=== PATIENT | female | born 1955 | race Asian ===

== ENCOUNTER → 2020-07-06 06:50 | Outpatient (CLI) | payer MEDICARE, BC, OTHER, SELFPAY ==
[2020-07-06 22:35] LABS: SARS-CoV-2 RNA PCR Negative
== END ==
PROVIDERS: PCP Family Medicine; Visit Provider Physician Assistant
DX: Z20.822 Contact with and (suspected) exposure to COVID-19 (principal); R05 Cough
CPT/HCPCS: C9803; U0003; U0005

== ENCOUNTER → 2020-09-29 14:36 | Outpatient (CLI) | payer MEDICARE, OTHER, SELFPAY ==
--- NOTE | ~2020-09-29 | MM_ITS ---
EXAMINATION: MM screening linda BI w ct HISTORY: Screening TECHNIQUE: Craniocaudal and mediolateral oblique 3-D tomosynthesis images were obtained and synthetic 2-D images were generated. CAD analysis was submitted and interpreted. COMPARISON: Comparison to multiple prior studies sequentially, with oldest reviewed study dated 02/25. BREAST PARENCHYMAL COMPOSITION: The breasts are heterogeneously dense, which may obscure small masses . FINDINGS: There is no evidence of suspicious mass, calcification, or architectural distortion to sugg est malignancy in either breast. There has been no suspicious interval change. IMPRESSION: 1. No mammographic evidence of malignancy. 2. Recommend routine screening mammography in one year. BI-RADS Category 1: Negative Reviewed, dictated and finalized at location A.
== END ==
PROVIDERS: PCP Family Medicine; Visit Provider Nurse Practitioner Obstetrics & Gynecology
DX: Z12.31 Encounter for screening mammogram for malignant neoplasm of breast (principal)
CPT/HCPCS: 77063; 77067

== ENCOUNTER → 2020-09-29 14:40 | Outpatient (CLI) | payer MEDICARE, OTHER, SELFPAY ==
--- NOTE | ~2020-09-29 | XR_ITS ---
EXAMINATION: XR ribs BI 3V w CXR 2V DATE: 09/29/2020 15:41 INDICATION: Pleurodynia. TECHNIQUE: Frontal and lateral views of the chest and 3 views of the right ribs and 3 views of the le ft ribs ribs were obtained. COMPARISON: None. FINDINGS: CHEST TWO VIEWS: The chest demonstrates clear lungs without pneumonia, pleural effusion, or pneumotho rax. The heart size is normal. BILATERAL RIBS: There is no rib fracture. IMPRESSION: 1. No rib fracture. Reviewed, dictated and finalized at location A. IMPRESSION: 1. No rib fracture.
== END ==
PROVIDERS: PCP Family Medicine; Visit Provider Physician Assistant
DX: R07.81 Pleurodynia (principal)
CPT/HCPCS: 71046; 71110

== ENCOUNTER → 2020-10-18 12:17 | Outpatient (CLI) | payer MEDICARE, OTHER, SELFPAY ==
--- NOTE | ~2020-10-18 | DEXA_ITS ---
Bone Density Report Name: Margarita Reyes Age: 65 Sex: Female Ethnicity: Date of : 1955 Indication: osteopenia; postmenopausal Referring Provider: Naye, Saumya Singer Study: Bone densitometry was performed. Exam Date: October 18, 2020 Accession number: [id number] Bone Density: Region BMD T-score Z-score Classification AP Spine (L1-L4) 0.837 -1.9 -0.1 Osteopenia Femoral Neck (Left) 0.648 -1.8 -0.3 Osteopenia Total Hip (Left) 0.748 -1.6 -0.3 Osteopenia Femoral Neck (Right) 0.645 -1.8 -0.3 Osteopenia Total Hip (Right) 0.786 -1.3 0.0 Osteopenia Total Hip Mean 0.767 -1.5 -0.2 Osteopenia World Health Organization criteria for BMD impression classify patients as: Normal (T-score at or above -1.0), Osteopenia (T-score between -1.0 and -2.5), or Osteoporosis (T-score at or below -2.5). 10-year Fracture Risk(1): Major Osteoporotic Fracture 5.5% Hip Fracture 0.8% Reported Risk Factors: [place] (), Neck BMD=0.645, BMI=24.1 (1) FRAX(R) Version 3.08. Fracture probability calculated for an untreated patient. Fracture probability may be lower if the patient has received treatment. Previous Exams: Region Exam Age BMD T-score BMD Change BMD Change Date g/cm2 vs Baseline vs Previous AP Spine(L1-L4) 10/18/2020 65 0.837 -1.9 -0.032* -0.037* 01/10/2009 53 0.874 -1.6 0.005 0.025* 12/15/2007 52 0.849 -1.8 -0.019 -0.019 11/26/2005 50 0.868 -1.6 Total Hip(Left) 10/18/2020 65 0.748 -1.6 -0.191* -0.045* 01/10/2009 53 0.794 -1.2 -0.145* 0.021 12/15/2007 52 0.773 -1.4 -0.166* -0.166* 11/26/2005 50 0.939 0.0 Total Hip(Right) 10/18/2020 65 0.786 -1.3 -0.138* -0.039* 01/10/2009 53 0.825 -1.0 -0.100* 0.048* 12/15/2007 52 0.777 -1.4 -0.148* -0.148* 11/26/2005 50 0.925 -0.1 *Denotes significance at 95% confidence level, LSC for AP Spine = 0.022 g/cm2, LSC for Total Hip = 0.027 g/cm2 Clinical Information Provided by Patient: Has used the following medications: Vitamin D Patient maximum height was 60 Menopause Age: 49 No regular weight bearing exercise Does not regularly consume dairy products Drinks caffeinated beverages Onset of menses at age 15 Number of children 3 Impression: The patient has low bone mass, based on the Total Spine T-s
== END ==
PROVIDERS: Visit Provider Nurse Practitioner Obstetrics & Gynecology
DX: Z78.0 Asymptomatic menopausal state (principal); M85.89 Other specified disorders of bone density and structure, multiple sites
CPT/HCPCS: 77080

== ENCOUNTER 2021-01-16 13:41 | Emergency (ER) | payer MEDICARE, OTHER, SELFPAY ==
--- NOTE | ~2021-01-16 | XR_ITS ---
Consultation XR DATE: 01/16/2021 INDICATION: Cough TECHNIQUE: 2 views COMPARISON: None FINDINGS: Normal heart size. No hilar or mediastinal enlargement. There is mild patchy infiltrate or atelectasis in the lower lung zones, left greater than right. No pleural effusion or pulmonary vascular congestion or pneumothorax. Diffuse osteopenia. IMPRESSION: Patchy lower lung infiltrate and/atelectasis, left greater than right Reviewed, dictated and finalized at Location A. Reviewed, dictated and finalized at location A. IMPRESSION: Patchy lower lung infiltrate and/atelectasis, left greater than rig ht
[2021-01-16 13:48] VITALS: BP 157/91; PULSE 114; RESP 18; TEMP 36.6; O2SAT 96
[2021-01-16 15:26] VITALS: BP 144/84; PULSE 99; RESP 16; TEMP 37.2; O2SAT 99
[2021-01-16 16:39] LABS: Basophils Absolute Auto 0.1 K/mm3 (0.0-0.1); Basophils Percent Auto 0.4 % (0.2-1.2); Eosinophils Absolute Auto 0.1 K/mm3 (0-0.3); Eosinophils Percent Auto 0.8 % (0-4.4); Hematocrit 41.2 % (37.0-47.0); Hemoglobin 13.1 g/dL (12.0-15.0); Immature Granulocyte Percent A 0.6 % (0-0.5); Lymphocytes Absolute Auto 1.92 K/mm3 (0.9-3.2); Mean Corpuscular HGB Conc 31.8 g/dl (32-36); Mean Platelet Volume 9.6 fl (7.4-10.4); Monocytes Absolute Auto 1.1 K/mm3 (0.1-0.6); Monocytes Percent Auto 6.2 % (2.6-8.5); Neutrophils Absolute Auto 14.1 K/mm3 (1.3-6.7); Platelet Count Result 388 k/mm3 (150-375); Red Blood Count 4.68 M/mm3 (4.2-5.4); Red Cell Distribution Width 12.3 % (11.5-14.5); White Blood Count 17.4 K/mm3 (4.5-10.0)
[2021-01-16 17:08] LABS: Alanine Aminotransferase 43 U/L (4-35); Albumin Level 4.7 g/dL (3.5-5.1); Alkaline Phosphatase 159 U/L (38-126); Anion Gap 13 mmol/L (8-16); Aspartate Amino Transferase 34 U/L (14-36); Bilirubin,Total 0.6 mg/dL (0.2-1.3); Blood Urea Nitrogen 9 mg/dL (7-17); Calcium 9.4 mg/dL (8.4-10.2); Carbon Dioxide 27 mmol/L (22-30); Chloride 98 mmol/L (98-107); Estimated CRCL calculation 57 ml/min; Estimated Glomerular Filt Rate > 60; Glucose 146 mg/dL (65-110); Potassium 4.3 mmol/L (3.4-5.0); Sodium 138 mmol/L (137-145)
--- NOTE | 2021-01-16 18:10 | ED.GENADULT ---
HPI - General Adult General Chief complaint: Upper Respiratory Infection Stated complaint: SENT FROM [facility] FOR PNX, DEHYDRATION, -covid Time Seen by Provider: 01/16/21 16:14 Source: patient and RN notes reviewed History of Present Illness HPI narrative: Patient is a 65 y/o female complaining of cough for about 10 days. She is coughing up some yellowish phlegm. There is no alleviating or exacerbating factor. She has no SOB or chest pain. She had some fever a few days ago, but no fever today. She was seen at urgent care today. She had COVID test, which was negative and Xray at urgent care reportedly showed pneumonia. She is sent here for further evaluation. Related Data Allergies Allergy/AdvReac Type Severity Reaction Status Date / Time AVACODO Allergy Unknown FACE Uncoded 09/29/20 09:43 SWELLING NKDA Allergy Unknown unk Uncoded 09/29/20 09:43 Review of Systems Constitutional: Constitutional: Denies chills, Reports fever(s), Denies headache(s) and Denies weakness Eyes: Eyes: Denies blurry vision ENT: Denies headache(s) and Denies neck pain Cardiovascular: Cardiovascular: Denies chest pain and Denies dyspnea Respiratory: Respiratory: Reports cough and Denies dyspnea Gastrointestinal: Gastrointestinal: Denies abdominal pain, Denies diarrhea, Denies nausea and Denies vomiting Genitourinary: Genitourinary: Denies hematuria and Denies dysuria Musculoskeletal: Musculoskeletal: Denies back pain and Denies neck pain Neurologic: Denies headache(s) and Denies weakness PMFSH Past Medical History Medical History Wellness examination Family History Family History Mother Diabetes mellitus Social History Social History Smoking status: Never smoker Alcohol intake: never Substance use: never Gender identity (if verbalized by the patient): Female Exam Const: General: no acute distress and well developed Orientation/consciousness: oriented to person, oriented to place, oriented to time and patient oriented x3 HENMT: Head: normocephalic Ears: external ears normal General nose exam: Normal external nose present Eyes: General: appearance normal, both eyes and all related structures Conjunctivae: conjunctivae normal Neck: Neck: normal visual inspection and full ROM Chest: Chest palpation & inspection: normal inspection of the chest and no tenderness Resp: Effort & Inspection: normal respiratory effort Auscultation: clear to auscultation bilaterally Cardio: Rate: regular rate Rhythm: regular rhythm GI: GI Palp: No abdominal tenderness and Yes Soft to palpation Skin: General skin exam: normal color and turgor normal Neuro: General: oriented to person, oriented to place, oriented to time and patient oriented x3 Cognition (Neuro): normal cognition Extrem: General: normal to inspection, full ROM and no pedal edema Psych: Appearance: grossly normal Mental Status: mental status grossly normal Affect: normal affect Course Vital Signs Vital signs: Vital Signs Temperature 36.6 C 01/16/21 13:48 Pulse Rate 114 H 01/16/21 13:48 Respiratory Rate 18 01/16/21 13:48 Blood Pressure 157/91 H 01/16/21 13:48 Pulse Oximetry 96 01/16/21 13:48 Temperature 37.2 C 01/16/21 15:26 Pulse Rate 100 01/16/21 18:22 Respiratory Rate 16 01/16/21 18:22 Blood Pressure 138/84 01/16/21 18:22 Pulse Oximetry 95 01/16/21 18:22 Medical Decision Making Vital Signs Vital Signs: Vital Signs Temperature 36.6 C 01/16/21 13:48 Pulse Rate 114 H 01/16/21 13:48 Respiratory Rate 18 01/16/21 13:48 Blood Pressure 157/91 H 01/16/21 13:48 Pulse Oximetry 96 01/16/21 13:48 Temperature 37.2 C 01/16/21 15:26 Pulse Rate 100 01/16/21 18:22 Respiratory Rate 16 01/16/21 18:22 Blood Pressure 138/84 01/16/21 18:22 Pulse Oxime
[2021-01-16 18:22] VITALS: BP 138/84; PULSE 100; RESP 16; O2SAT 95
== END 2021-01-16 18:24 | disposition home or self-care (01) ==
PROVIDERS: Emergency Provider Emergency Medicine; PCP Family Medicine
DX: J18.9 Pneumonia, unspecified organism (principal)
CPT/HCPCS: 36415; 80053; 85025; 99199; 99283

== ENCOUNTER 2021-05-11 01:56 | Day surgery (SDC) | payer MEDICARE, OTHER, SELFPAY ==
[2021-04-28 13:24] VITALS: BMI 23.4
--- NOTE | 2021-05-11 09:54 | WPDANESEPPF ---
Anes - Initial Pre Proc Eval Procedure: Operation Date: 05/11/21 12:30 Proposed Procedures p Screening Colonoscopy - Mayco Caceres MD Date/Time: 05/11/21 09:54 Surgeon: Mayco Caceres MD Pre Op Diagnosis: hx of colon polyps Patient Data Age: 65 Gender: F Height: 1.52 m Weight: 54.5 kg Allergies Allergy/AdvReac Type Severity Reaction Status Date / Time AVACODO Allergy Unknown FACE Uncoded 05/11/21 10:41 SWELLING Home Medications Medication Instructions Recorded Confirmed Type metformin 500 mg tablet 1,000 mg PO BID #360 tablet 03/13/21 05/11/21 Rx atorvastatin 20 mg tablet 20 mg PO DAILY #90 tablet 03/14/21 05/11/21 Rx cholecalciferol (vitamin D3) 50 mcg PO DAILY 04/28/21 05/11/21 History famotidine 40 mg PO HS 04/28/21 05/11/21 History Patient hx anesthesia problems: none Family hx anesthesia problems: none Results Review: All pre-operative results and documents have been reviewed as part of the pre-operative evaluation. FORMERLY [facility], [facility] Past Medical History Medical History (Updated 05/11/21 @ 09:54 by Kurt Landry DO) Depression Hyperlipidemia Type 2 diabetes mellitus without complication, without long-term current use of insulin Wellness examination Family History Family History Mother Diabetes mellitus Social History Social History Alcohol intake: never Substance use: never Living arrangements: with family Gender identity (if verbalized by the patient): Female Spiritual care concerns: No Anes - Eval Final PreProcedure Day of Procedure 05/11/21 09:54 Patient weight: normal Heart: regular rate and rhythm Lungs: clear to auscultation and normal air movement Airway: Mallampati scale class II Neurological: alert and oriented Last oral intake: >/= 8 hours ASA classification: III Emergent: no Anesthetic plan: proceed Anesthesia type and monitoring: general GIVS and standard monitoring Results Review: All pre-operative results and documents have been reviewed as part of the pre-operative evaluation. Informed Consent: The patient's anesthetic plan and its attendant risks and benefits were discussed with the patient/family/POA. Questions were solicited and answers provided to the satisfaction of the patient/family/POA.
[2021-05-11 10:43] VITALS: BP 150/72; PULSE 72; RESP 16; TEMP 36.7; O2SAT 100; BMI 23.0
[2021-05-11] MEDS: LACTATED RINGERS 1,000 ML 150 ML IV CONT (10:59)
[2021-05-11 11:02] LABS: Glucose Point of Care 126 mg/dl (65-105)
--- NOTE | 2021-05-11 11:09 | WPDGICN ---
Assessment and Plan Assessment and plan (1) History of colon polyps: Code(s): Z86.010 - Personal history of colonic polyps Status: Acute Assessment and Plan: Patient has a history of adenomatous colon polyp removed from the colon in 2007. Plan is for surveillance colonoscopy at present. Further recommendations will be given after endoscopy. GI Consult Note Consult date/time: 05/11/21 11:09 HPI: Margarita Reyes is a 65 year old female Presents for screening colonoscopy. Patient has a history of colon polyps in 2007 an adenoma was removed by Dr. Santana. Hyperplastic polyp was identified in 2012. Patient reports that her current weight appetite and bowel movements are normal. She denies abdominal pain. She has had no bleeding. Family history is noncontributory. Review of Systems Review of Systems: All systems reviewed & are unremarkable except as noted in HPI and below [facility] Past Medical History Medical History (Updated 05/11/21 @ 11:10 by Mayco Caceres MD) Depression Hyperlipidemia Type 2 diabetes mellitus without complication, without long-term current use of insulin Wellness examination Family History Family History Mother Diabetes mellitus Social History Social History Alcohol intake: never Substance use: never Living arrangements: with family Gender identity (if verbalized by the patient): Female Spiritual care concerns: No Meds Home Medications and Allergies Home Medications Medication Instructions Recorded Confirmed Type metformin 500 mg tablet 1,000 mg PO BID #360 tablet 03/13/21 05/11/21 Rx atorvastatin 20 mg tablet 20 mg PO DAILY #90 tablet 03/14/21 05/11/21 Rx cholecalciferol (vitamin D3) 50 mcg PO DAILY 04/28/21 05/11/21 History famotidine 40 mg PO HS 04/28/21 05/11/21 History Allergies Allergy/AdvReac Type Severity Reaction Status Date / Time AVACODO Allergy Unknown FACE Uncoded 05/11/21 10:41 SWELLING Vital Signs Vital Signs - 24 hr 05/11/21 10:43 Temperature 98.1 F Pulse Rate 72 Respiratory Rate 16 Blood Pressure 150/72 H Pulse Oximetry 100 Exam Narrative: Fit physical exam reveals patient to be alert. Vital signs stable. HEENT exam is unremarkable. Patient is anicteric. Lungs are clear to auscultation and percussion. Heart is without murmur or extra sounds. Abdominal exam bowel sounds are present soft nontender with no organomegaly. Digital external rectal exam unremarkable.
[2021-05-11 11:56] VITALS: BP 141/73; PULSE 78; RESP 19; O2SAT 98
[2021-05-11 12:06] VITALS: BP 139/68; PULSE 75; RESP 17; O2SAT 97
[2021-05-11 12:16] VITALS: BP 143/77; PULSE 74; RESP 22; O2SAT 99
== END 2021-05-11 12:30 | disposition home or self-care (01) ==
PROVIDERS: PCP Family Medicine; Visit Provider Internal Medicine Gastroenterology
PROC: 0DJD8ZZ Inspection of Lower Intestinal Tract, Via Natural or Artificial Opening Endoscopic (ICD-10-PCS; CPT 45378; principal; 2021-05-11 12:30)
DX: Z12.11 Encounter for screening for malignant neoplasm of colon (principal); K64.8 Other hemorrhoids; K57.30 Diverticulosis of large intestine without perforation or abscess without bleeding; Z86.010 Personal history of colon polyps; E11.9 Type 2 diabetes mellitus without complications; E78.5 Hyperlipidemia, unspecified; F32.9 Major depressive disorder, single episode, unspecified; Z79.84 Long term (current) use of oral hypoglycemic drugs
CPT/HCPCS: G0105; 82948; J2704; J7120

== ENCOUNTER → 2021-10-17 10:08 | Outpatient (CLI) | payer MEDICARE, OTHER, SELFPAY ==
--- NOTE | ~2021-10-17 | XR_ITS ---
XR knee RT 3V 10/17/2021 10:27 Indication: Right knee pain Procedure: 3 views right knee Comparison: No prior studies for comparison. Findings: No fracture, subluxation or dislocation. Prominent tibial tuberosity. No fracture or trauma tic malalignment. No significant joint effusion. There is mild osteoarthritis of the lateral facet of the patellofemoral compartment. Impression: 1: Mild patellofemoral compartment osteoarthritis. Reviewed, dictated and finalized at location A. Impression: 1: Mild patellofemoral compartment osteoarthritis.
== END ==
PROVIDERS: PCP Family Medicine; Visit Provider Family Medicine
DX: M25.561 Pain in right knee (principal); M17.11 Unilateral primary osteoarthritis, right knee
CPT/HCPCS: 73562

== ENCOUNTER → 2021-12-18 11:40 | Outpatient (CLI) | payer MEDICARE, OTHER, SELFPAY ==
--- NOTE | ~2021-12-18 | MM_ITS ---
EXAMINATION: MM screening linda BI w ct HISTORY: Screening mammogram TECHNIQUE: Craniocaudal and mediolateral oblique 3-D tomosynthesis images were obtained and synthetic 2-D images were generated. CAD analysis was submitted and interpreted. COMPARISON: 09/29/2020, 06/10/2019, 04/23/2018 bilateral screening mammogram examinations BREAST PARENCHYMAL COMPOSITION: The breasts are heterogeneously dense, which may obscure small masses . FINDINGS: There is no evidence of suspicious mass, calcification, or architectural distortion to sugg est malignancy in either breast. There has been no suspicious interval change. IMPRESSION: 1. No mammographic evidence of malignancy. 2. Recommend routine screening mammography in one year. BI-RADS Category 1: Negative Reviewed, dictated and finalized at location A.
== END ==
PROVIDERS: PCP Family Medicine; Visit Provider Family Medicine
DX: Z12.31 Encounter for screening mammogram for malignant neoplasm of breast (principal)
CPT/HCPCS: 77063; 77067

== ENCOUNTER 2023-10-01 11:09 | Outpatient (CLI) | payer MEDICARE, OTHER, SELFPAY ==
--- NOTE | ~2023-10-01 | MM_ITS ---
EXAMINATION: MM screening linda BI w ct HISTORY: Screening mammogram TECHNIQUE: Craniocaudal and mediolateral oblique 3-D tomosynthesis images were obtained and synthetic 2-D images were generated. CAD analysis was submitted and interpreted. COMPARISON: 12/18/2021, 09/29/2020 bilateral screening mammogram examinations BREAST PARENCHYMAL COMPOSITION: The breasts are heterogeneously dense, which may obscure small masses . FINDINGS: There is no evidence of suspicious mass, calcification, or architectural distortion to sugg est malignancy in either breast. There has been no suspicious interval change. IMPRESSION: 1. No mammographic evidence of malignancy. 2. Recommend routine screening mammography in one year. BI-RADS Category 1: Negative Reviewed, dictated and finalized at location B.
== END 2023-10-01 11:10 ==
LOC: MICIMG 11:11
PROVIDERS: PCP Family Medicine; Visit Provider Family Medicine
DX: Z12.31 Encounter for screening mammogram for malignant neoplasm of breast (principal)
CPT/HCPCS: 77063; 77067

== ENCOUNTER 2023-10-07 08:35 | Outpatient (CLI) | payer MEDICARE, OTHER, SELFPAY ==
--- NOTE | ~2023-10-07 | DEXA_ITS ---
Bone Density Report Name: DONNELL STRATTON Age: 68 Sex: Female Ethnicity: Date of : 1955 Indication: osteopenia; postmenopausal Referring Provider: Domo Rao Study: Bone densitometry was performed. Exam Date: October 07, 2023 Accession number: [id number] Bone Density: Region BMD T-score Z-score Classification AP Spine (L1-L4) 0.840 -1.9 0.1 Osteopenia Femoral Neck (Left) 0.633 -1.9 -0.2 Osteopenia Total Hip (Left) 0.750 -1.6 -0.2 Osteopenia Femoral Neck (Right) 0.644 -1.8 -0.1 Osteopenia Total Hip (Right) 0.791 -1.2 0.2 Osteopenia Total Hip Mean 0.771 -1.4 0.0 Osteopenia World Health Organization criteria for BMD impression classify patients as: Normal (T-score at or above -1.0), Osteopenia (T-score between -1.0 and -2.5), or Osteoporosis (T-score at or below -2.5). 10-year Fracture Risk(1): Major Osteoporotic Fracture 6.3% Hip Fracture 1.1% Reported Risk Factors: [place] (), Neck BMD=0.633, BMI=25.2 (1) FRAX(R) Version 3.08. Fracture probability calculated for an untreated patient. Fracture probability may be lower if the patient has received treatment. Previous Exams: Region Exam Age BMD T-score BMD Change BMD Change Date g/cm2 vs Baseline vs Previous AP Spine(L1-L4) 10/07/2023 68 0.840 -1.9 -0.028* 0.003 10/18/2020 65 0.837 -1.9 -0.032* -0.037* 01/10/2009 53 0.874 -1.6 0.005 0.025* 12/15/2007 52 0.849 -1.8 -0.019 -0.019 11/26/2005 50 0.868 -1.6 Total Hip(Left) 10/07/2023 68 0.750 -1.6 -0.188* 0.002 10/18/2020 65 0.748 -1.6 -0.191* -0.045* 01/10/2009 53 0.794 -1.2 -0.145* 0.021 12/15/2007 52 0.773 -1.4 -0.166* -0.166* 11/26/2005 50 0.939 0.0 Total Hip(Right) 10/07/2023 68 0.791 -1.2 -0.133* 0.005 10/18/2020 65 0.786 -1.3 -0.138* -0.039* 01/10/2009 53 0.825 -1.0 -0.100* 0.048* 12/15/2007 52 0.777 -1.4 -0.148* -0.148* 11/26/2005 50 0.925 -0.1 *Denotes significance at 95% confidence level, LSC for AP Spine = 0.022 g/cm2, LSC for Total Hip = 0.027 g/cm2 Clinical Information Provided by Patient: Has used the following medications: Vitamin D, Calcium Patient maximum height was 60 Menopause Age: 49 No regular weight bearing exercise Does not regularly consume dairy products Drinks caffeinated beverages
== END 2023-10-07 08:36 ==
LOC: MICIMG 08:36
PROVIDERS: PCP Family Medicine; Visit Provider Family Medicine
DX: M85.89 Other specified disorders of bone density and structure, multiple sites (principal); Z78.0 Asymptomatic menopausal state
CPT/HCPCS: 77080

== ENCOUNTER 2024-10-05 09:37 | Outpatient (CLI) | payer MEDICARE, OTHER, SELFPAY ==
--- NOTE | ~2024-10-05 | MM_ITS ---
EXAMINATION: MM screening linda BI w ct HISTORY: Screening mammogram TECHNIQUE: Craniocaudal and mediolateral oblique 3-D tomosynthesis images were obtained and synthetic 2-D images were generated. CAD analysis was submitted and interpreted. COMPARISON: 10/01/2023, 12/18/2021, 09/29/2020 BREAST PARENCHYMAL COMPOSITION:Dense: The breasts are heterogeneously dense, which may obscure small masses. FINDINGS: No suspicious mass, calcification, or architectural distortion are identified in either mel ast to suggest malignancy. There has been no suspicious interval change. IMPRESSION: No mammographic evidence of malignancy. Recommend routine screening mammography in one year. BI-RADS Category 1: Negative Reviewed, dictated and finalized at location .
== END 2024-10-05 09:38 | disposition home or self-care (01) ==
LOC: MICIMG 09:38
PROVIDERS: PCP Family Medicine; Visit Provider Family Medicine
DX: Z12.31 Encounter for screening mammogram for malignant neoplasm of breast (principal)
CPT/HCPCS: 77063; 77067

== ENCOUNTER 2025-03-26 12:11 | Outpatient (CLI) | payer MEDICARE, OTHER, SELFPAY ==
--- NOTE | ~2025-03-26 | XR_ITS ---
XR lumbar spine 2-3V Indication: M54.50 - Low back pain, unspecified Comparison: None Findings: Grade 1 anterolisthesis of L4 on L5, no fracture. Moderate loss of disc height at L4-5 and L5-S1. Soft tissues unremarkable Impression: No acute abnormality. Reviewed, dictated and finalized at location P. Impression: No acute abnormality.
== END 2025-03-26 12:12 | disposition home or self-care (01) ==
LOC: MICIMG 12:12
PROVIDERS: PCP Family Medicine; Visit Provider Student in an Organized Health Care Education/Training Program
DX: M43.16 Spondylolisthesis, lumbar region (principal); R29.890 Loss of height
CPT/HCPCS: 72100